=== PATIENT | female | born 1995 | race Caucasian/White ===

== ENCOUNTER 2017-01-29 02:02 | Emergency (ER) | payer OTHER ==
[2017-01-29 02:16] VITALS: BP 109/84; PULSE 125; RESP 16; TEMP 98.6; O2SAT 95
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
== END 2017-01-29 02:55 | disposition home or self-care (01) ==
DX: S89.91XA Unspecified injury of right lower leg, initial encounter (principal); S89.92XA Unspecified injury of left lower leg, initial encounter; Z02.89 Encounter for other administrative examinations; V49.40XA Driver injured in collision with unspecified motor vehicles in traffic accident, initial encounter; Y92.410 Unspecified street and highway as the place of occurrence of the external cause; Y99.8 Other external cause status; Y93.89 Activity, other specified